=== PATIENT | female | born 1990 | race American Indian/Alaskan Native ===

== ENCOUNTER 2017-01-16 20:20 | Emergency (ER) | payer SELFPAY ==
[2017-01-16 22:05] VITALS: BP 143/95
== END 2017-01-17 04:34 | disposition left against medical advice (07) ==
LOC: ED 20:20
DX: R21 Rash and other nonspecific skin eruption (principal); Z53.21 Procedure and treatment not carried out due to patient leaving prior to being seen by health care provider

== ENCOUNTER 2017-09-13 19:11 | Emergency (ER) | payer SELFPAY ==
[2017-09-13 19:41] VITALS: BP 125/89
[2017-09-13] MEDS ORDERED: ASPIRIN PO ONE (19:41)
[2017-09-13 20:07] LABS: Basophils # (Auto) 0.1 K/mm3 (0.0-0.1); Eosinophils # (Auto) 0.2 K/mm3 (0.0-0.4); Eosinophils % (Auto) 3.4 % (0.0-4.3); Hematocrit 37.4 % (30.3-42.9); Hemoglobin 12.1 gm/dl (10.1-14.3); Lymphocytes # (Auto) 2.4 K/mm3 (1.2-5.4); Lymphocytes % (Auto) 39.2 % (13.4-35.0); Mean Corpuscular HGB Conc 32 % (30-34); Mean Corpuscular Hemoglobin 28 pg (28-32); Mean Corpuscular Volume 87 fl (79-97); Monocytes # (Auto) 0.7 K/mm3 (0.0-0.8); Monocytes % (Auto) 11.2 % (0.0-7.3); Platelet Count 185 K/mm3 (140-440); Red Blood Count 4.32 M/mm3 (3.65-5.03); Red Cell Distribution Width 13.9 % (13.2-15.2)
[2017-09-13 20:20] LABS: BUN/Creatinine Ratio 14; Blood Urea Nitrogen 10 mg/dL (7-17); Calcium 8.9 mg/dL (8.4-10.2); Hemolysis Index 1
== END 2017-09-14 01:25 | disposition left against medical advice (07) ==
LOC: ED 19:11
DX: K21.9 Gastro-esophageal reflux disease without esophagitis (principal); Z53.21 Procedure and treatment not carried out due to patient leaving prior to being seen by health care provider
CPT/HCPCS: 36415; 80048; 84484; 85025; 93005; 93010

== ENCOUNTER 2018-11-06 07:33 | Emergency (ER) | payer OTHER ==
[2018-11-06 07:38] VITALS: BP 142/91
--- NOTE | 2018-11-06 07:53 | Emergency Department Report ---
ED Dysuria HPI - HPI Chief Complaint: Urogenital-Female Stated Complaint: DISCHARGE Time Seen by Provider: 11/06/18 07:52 Duration: 2 Days Severity: Mild Symptoms: Dysuria: No, Frequency: No, Suprapubic Pain: No, Flank Pain: No, Fever: No, Hematuria: No, Abdominal Pain: No, Previous UTI's: No Other History: Pt a pleasant 28-year-old female who comes to the ER today with concerns for a urinary tract infection. She states she she has burning on urination. Her last menstrual cycle was 2 weeks ago. She is also on recent antibiotics for dental infection. She has no fever. She has no back pain. She has taken Motrin [id number] and it does provide some relief. No discharge. pt is not concerned for STI ED Review of Systems ROS: Stated complaint: DISCHARGE Other details as noted in HPI Comment: All other systems reviewed and negative Constitutional: denies: chills, fever Eyes: denies: eye pain ENT: denies: ear pain, throat pain Respiratory: denies: cough Cardiovascular: denies: palpitations Endocrine: denies: flushing Gastrointestinal: denies: vomiting Genitourinary: as per HPI, dysuria. denies: urgency, frequency, hematuria, discharge, abnormal menses Musculoskeletal: denies: back pain Skin: denies: lesions Neurological: denies: headache Psychiatric: denies: depression Hematological/Lymphatic: denies: easy bleeding ED Past Medical Hx - Past Medical History Hx GERD: Yes - Surgical History Past Surgical History?: No - Family History Family history: no significant - Social History Smoking Status: Never Smoker Substance Use Type: Alcohol Dysuria Exam - Exam General: Vital signs noted. No distress. Alert and acting appropriately. neuro intact s1s2 lungs cta abd snt no cva tenderness Exam: Yes Moist Mucous Membranes, No CVA Tenderness, No Abdominal Tenderness, No Rigidity or Guarding ED Course Vital Signs 11/06/18 07:35 Temperature 97.9 F Pulse Rate 92 H Respiratory 18 Rate Blood Pressure 142/91 O2 Sat by Pulse 100 Oximetry ED Medical Decision Making - Medical Decision Making Vital Signs 11/06/18 07:35 Temperature 97.9 F Pulse Rate 92 H Respiratory 18 Rate Blood Pressure 142/91 O2 Sat by Pulse 100 Oximetry Labs 11/06/18 08:07 Urine Color Yellow Urine Turbidity Clear Urine pH 7.0 Ur Specific [place] 1.021 Urine Protein <15 mg/dl Urine Glucose (UA) Neg Urine Ketones Neg Urine Blood Neg Urine Nitrite Neg Urine Bilirubin Neg Urine Urobilinogen < 2.0 Ur Leukocyte Esterase Neg Urine WBC (Auto) < 1.0 Urine RBC (Auto) 1.0 U Epithel Cells (Auto) 1.0 Urine Mucus Few Urine HCG, Qual Negative preg neg no leuk no nitrates on ua. discussed with pt given no discharge or lesions this is not an STI she was on antibiotics recently for dental caries we discussed eating yogurt etc when on antibiotics she has not taken azo she was relieved no preg and wanted to leave. dc home with dc plan of care VSS taking PO ambulatory did not want to wait for her dc papers - Differential Diagnosis ro uti v preg Critical care attestation.: If time is entered above; I have spent that time in minutes in the direct care of this critically ill patient, excluding procedure time. ED Disposition Clinical Impression: Dysuria Disposition: DC-01 TO HOME OR SELFCARE Is pt being admited?: No Does the pt Need Aspirin: No Condition: Stable Referrals: EULALIA MARTINEZ MD [Primary Care Provider] - 3-5 Days Time of Disposition: 10:22
[2018-11-06 08:55] LABS: Bilirubin,Urine NEG (Negative); Blood,Urine NEG (Negative); Color,Urine Yellow (Yellow); Mucus,Urine FEW /HPF; Protein,Urine <15 mg/dL mg/dL (Negative); Urobilinogen,Urine < 2.0 mg/dL (<2.0); WBC,Urine < 1.0 /HPF (0.0-6.0)
[2018-11-06 09:01] LABS: HCG Qualitative,Urine Negative (Negative)
== END 2018-11-06 10:20 | disposition home or self-care (01) ==
LOC: ED 07:33
DX: R30.0 Dysuria (principal); K21.9 Gastro-esophageal reflux disease without esophagitis
CPT/HCPCS: 81001; 81025